=== PATIENT | female | born 1935 | race Hispanic/Latino ===

== ENCOUNTER 2017-06-01 15:18 | Outpatient (CLI) | payer MEDICARE ==
--- NOTE | 2017-06-01 16:31 | XRay Report ---
FINAL REPORT PROCEDURE: Sinuses. TECHNIQUE: Five views. HISTORY: Sinus pain. COMPARISON: No prior studies are available for comparison. FINDINGS: The paranasal sinuses are clear. There are no signs of mucosal thickening or fluid. The mastoid air cells are clear. The facial bones are unremarkable. IMPRESSION: Normal study.
== END 2017-06-01 15:19 | disposition home or self-care (01) ==
LOC: XRAY 15:18
PROVIDERS: ATTEND Internal Medicine
DX: J34.89 Other specified disorders of nose and nasal sinuses (principal)
CPT/HCPCS: 70220

== ENCOUNTER 2020-02-25 11:35 | Outpatient (CLI) | payer MEDICARE ==
--- NOTE | 2020-02-25 17:19 | Mammography Report ---
DIGITAL SCREENING MAMMOGRAM WITH CAD, 02/25/2020 INDICATION: Routine screening mammography. TECHNIQUE: Digital bilateral 2D mammography was obtained in the craniocaudal and mediolateral obliq ue projections. This examination was interpreted with the benefit of Computer-Aided Detection analysi s. COMPARISON: 04/27/2018. FINDINGS: Breast Density: There are scattered areas of fibroglandular density. There is no evidence of dominant mass, suspicious calcifications or architectural distortion in eithe r breast. IMPRESSION: Follow up recommendation: Routine yearly BI-RADS Category 1: Negative. A "normal" or negative report should not discourage follow up or biopsy of a clinically significant f inding. A written summary of these findings will be mailed to the patient. The patient will be entered into a mammography reporting system which will generate a reminder letter for the patient's next appointmen t at the appropriate interval. The [employer] recommends yearly mammograms starting at age 40 and continuing as l cristel as a woman is in good health. Breast MRI is recommended for women with an approximate 20-25% or greater lifetime risk of breast cancer, including women with a strong family history of breast or ova pauline cancer or who have been treated for Hodgkin's disease. Signer Name: Syed Pineda MD Signed: 02/25/2020 5:15 PM Workstation Name: [id number]
== END 2020-02-25 11:36 | disposition home or self-care (01) ==
LOC: MAMMO 11:35
PROVIDERS: ATTEND Internal Medicine
DX: Z12.31 Encounter for screening mammogram for malignant neoplasm of breast (principal)
CPT/HCPCS: 77067

== ENCOUNTER 2021-07-15 13:45 | Emergency (ER) | payer MEDICARE ==
[2021-07-15 14:37] VITALS: BP 155/76
== END 2021-07-15 17:24 | disposition left against medical advice (07) ==
LOC: ED 13:45
DX: Z00.00 Encounter for general adult medical examination without abnormal findings (principal); Z53.21 Procedure and treatment not carried out due to patient leaving prior to being seen by health care provider